=== PATIENT | female | born 1990 | race Caucasian/White ===

== ENCOUNTER → 2019-10-25 14:06 | Outpatient (BNVA) | payer MEDICAID, SELFPAY | PROVIDERS: Family Provider Pediatrics; PCP Pediatrics; Visit Provider Nurse Practitioner Family | DX: R39.9 Unspecified symptoms and signs involving the genitourinary system (principal); N39.0 Urinary tract infection, site not specified | CPT/HCPCS: 80053; 81000; 87077; 87086; 87186 ==

== ENCOUNTER → 2020-03-06 16:06 | Outpatient (BNVA) | payer MEDICAID, SELFPAY | PROVIDERS: Family Provider Pediatrics; PCP Pediatrics; Visit Provider Nurse Practitioner Family | DX: J01.40 Acute pansinusitis, unspecified (principal); M25.571 Pain in right ankle and joints of right foot; S99.919A Unspecified injury of unspecified ankle, initial encounter; S99.911A Unspecified injury of right ankle, initial encounter; X58.XXXA Exposure to other specified factors, initial encounter | CPT/HCPCS: 73610 ==

== ENCOUNTER 2022-02-21 06:26 | Emergency (ER) | payer BC, MEDICAID, SELFPAY ==
[2022-02-21] VITALS (7 sets, daily range): BP systolic 163–187; BP diastolic 113–123; PULSE 90; RESP 16; TEMP 36.7; O2SAT 92–100; BMI 22.1
--- NOTE | 2022-02-21 06:53 | XR_ITS ---
WS: [id number] Portable AP upright chest, 02/21/2022 Clinical Data: high blood pressure with dizziness Comparison: None. Findings: No nodules, masses or effusions are seen. The heart is normal. The pulmonary vascularity is not increased. No pneumonia or pneumothorax is seen. XR/XR chest 1V portable [id number] Impression: Negative chest.
--- NOTE | 2022-02-21 06:53 | CTR_ITS ---
PROCEDURE INFORMATION: Exam: CT Head Without Contrast Exam date and time: 02/21/2022 7:39 AM Age: 31 years old Clinical indication: Dizziness TECHNIQUE: Imaging protocol: Computed tomography of the head without contrast. Radiation optimization: All CT scans at this facility use at least one of these dose optimization techniques: automated exposure control; mA and/or kV adjustment per patient size (includes targeted exams where dose is matched to clinical indication); or iterative reconstruction. COMPARISON: No relevant prior studies available. RADIATION DOSE METRICS: Total DLP (mGy-cm): 966.78 FINDINGS: Brain: There is no acute intracranial hemorrhage. No extra-axial fluid collection. No evidence of acute infarct. [place]o white differentiation is intact. There is no evidence of mass. There is no mass effect or midline shift. Cerebral ventricles: No ventriculomegaly. Paranasal sinuses: Visualized sinuses are unremarkable. No fluid levels. Mastoid air cells: No significant mastoid effusion. Bones/joints: No acute fracture. Soft tissues: Unremarkable as visualized. CT/CT head wo con* [id number] IMPRESSION: No evidence of acute intracranial abnormality. No acute hemorrhage. No evidence of acute infarct or mass.
--- NOTE | 2022-02-21 06:55 | ECG_ITS ---
[facility] Test Date: 2022-02-21 Pat Name: Niurka Martines Department: Room: Gender: Female Devops Consultant: : 1990 Requested By: Ryne Camp Order Number: [id number] Bhavesh MD: Luz Portillo M.D. Measurements Intervals [place] Rate: 77 P: 67 MI: 128 QRS: 76 QRSD: 84 T: 59 QT: 385 QTc: 437 Interpretive Statements SINUS RHYTHM INTERPRETATION BASED ON A DEFAULT AGE OF 40 YEARS No previous ECG available for comparison Electronically Signed On 02-21-2022 17:11:14 CDT by Luz Portillo M.D. [id number]
--- NOTE | 2022-02-21 06:56 | W.ED.GENADLT ---
HPI - General Adult General: Chief complaint: General Medical Stated complaint: Dizzy Time Seen by Provider: 02/21/22 06:32 History of Present Illness: 31-year-old female presents emergency department chief complaint of dizziness intermittently has been ongoing for last several days. The patient reports no chest pain shortness of breath or palpitations associated with it she reported is intermittent unrelated activity or exertion. She reports history of high blood pressure following her previous 6 years ago however it reports he is on no blood pressure medications reports her diastolic is normally over 100. Patient reports she does not frequently see a physician. She reports she is on no current medications for her blood pressure. Patient reports having no current headache or focal weakness reporting no other associated symptoms. Associated symptoms: Deny chest pain, dyspnea, malaise, nausea, rash, palpitations or vomiting Review of Systems General: Reports: 10 or more systems reviewed and unremarkable except in HPI and below Const: Denies: fever(s), chills, fatigue or malaise Eyes: Denies: change in vision or blurry vision Card: Denies: chest pain or palpitations Resp: Denies: dyspnea or productive cough GI: Denies: abdominal pain, nausea or vomiting : Denies: flank pain Musc: Denies: extremity pain or extremity swelling Skin/Breast: Denies: rash or pruritus Neuro: Reports: dizziness and vertigo Psych: Denies: anxiety or depression James/Lymph: Denies: easy bleeding All/Imm: Denies: urticaria, throat swelling or facial swelling PFSH ED PFSH: Medical History Personal history of smoking Surgical History History of section time 3 History of tubal ligation Family History Other Cancer Diabetes Hypertension Social History Smoking and tobacco status: current every day smoker Second hand smoke exposure: Yes Smoking risk assessment/counseling performed?: Yes Alcohol intake: never Desire information about alcohol rehabilitation?: No Counseling given: No Desire information about substance/drug rehabilitation?: No Counseling given: No Adopted: No Caregiver/support person: No Lives independently: Yes Household members: spouse Housing: House Marital status: Number of children: 3 service: No Current occupational status: employed History of recent travel: No Current gender identity: Female Female Reproductive History: Date of last menstrual period: 10/31/19 Physical Exam Const: COMMON NORMALS: no acute distress, patient oriented x3 and healthy appearing OTHER: Patient appears nontoxic with no obvious focal neurodeficits appreciated HENMT: COMMON NORMALS: normocephalic and atraumatic HEAD & SCALP: normocephalic and atraumatic Eye: COMMON NORMALS: Equal, round and reactive pupils present and EOMs intact bilaterally PUPIL: Yes Equal, round and reactive pupils present Neck/C-Spine: COMMON NORMALS: full ROM, supple and no JVD Lymph: LYMPHATIC: no lymphadenopathy noted Chest: COMMONS NORMALS: normal inspection of the chest and normal palpation of entire chest wall Resp: COMMON NORMALS: normal respiratory effort, No retractions and clear to auscultation bilaterally EFFORT & INSPECTION: Yes able to speak in complete sentences and Yes symmetric chest movement AUSCULTATION: clear to auscultation bilaterally Cardio: COMMON NORMALS: no JVD, regular rate and regular rhythm RATE: regular rate RHYTHM: regular rhythm GI: COMMON NORMALS: Normal to inspection, nondistended, normoactive bowel sounds present, Soft to palpation and non-tender INSPECTION: Yes normal to inspection PALPATION: Yes Soft to palpation : COMMON NORMALS: Yes no CVA tenderness BLADDER/KIDNEY EXAM: Yes no CVA tenderness Back/Pelvis: COMMON NORMALS: no CVA tenderness Extremity: COMMON NORMALS: normal to inspection and full ROM Neuro: COMMON NORMALS: patient oriented x3, CN's II-XII intact bilaterally, moves all extremities and no focal motor deficits OTHER: GCS of 15 NIH is 0 Psych: COMMON NORMALS: mental status grossly normal, Normal thought process present, cooperative and normal affect THOUGHT PROCESS: Normal thought process present Skin: COMMON NORMALS: no rashes or lesions noted GENERAL SKIN EXAM: no rashes or lesions noted Course Vital Signs: Vital signs: Vital Signs Temperature 98.1 F 02/21/22 06:37 Pulse Rate 90 02/21/22 06:37 Respiratory Rate 16 02/21/22 06:37 Blood Pressure 184/123 02/21/22 07:55 Pulse Oximetry 92 02/21/22 07:50 MDM - General Adult Medical Decision Making Due to the patient's symptoms due to the patient's symptoms and condition underlying concerns of hypertensive urgency emergency or prominent we will be obtaining a appropriate cardiac work-up we will continue to follow the patient blood pressure which most likely will need to be responded readily with intravenous antihypertensives we will continue to follow. Patient was found be positive for amphetamine abuse with contributing to reason why she is so grossly hypertensive we will be starting the patient on additional medications for her associated symptoms. Patient was advised to further follow-up with primary care in 2 to 3 days which was advised to return the interim if any of her symptoms persist or worse. Lab Data : 02/21/22 07:00 02/21/22 07:00 Radiology Impressions Chest X-Ray 02/21/22 06:53 Impression: Negative chest. Head CT 02/21/22 06:53 IMPRESSION: No evidence of acute intracranial abnormality. No acute hemorrhage. No evidence of acute infarct or mass. Laboratory Results WBC 8.2 10^3/uL (4.0-10.0) 02/21/22 07:00 RBC 4.61 10^6/uL (4.1-5.3) 02/21/22 07:00 Hgb 13.2 g/dL (11.5-15.3) 02/21/22 07:00 Hct 40.8 % (37.0-47.0) 02/21/22 07:00 MCV 88.5 fl (81-99) 02/21/22 07:00 MCH 28.6 pg (28.0-34.0) 02/21/22 07:00 MCHC 32.4 g/dL (30.0-36.0) 02/21/22 07:00 RDW 13.6 % (12.1-15.1) 02/21/22 07:00 Plt Count 318 10^3/cmm (130-400) 02/21/22 07:00 MPV 9.3 fL (7.4-10.4) 02/21/22 07:00 Neut % (Auto) 62.9 % 02/21/22 07:00 Lymph % (Auto) 24.7 % 02/21/22 07:00 [place] % (Auto) 8.4 % 02/21/22 07:00 Eos % (Auto) 3.3 % 02/21/22 07:00 Baso % (Auto) 0.5 % 02/21/22 07:00 Neut # (Auto) 5.18 10^3/uL (1.8-7.7) 02/21/22 07:00 Lymph # (Auto) 2.0 10^3/uL (0.8-4.8) 02/21/22 07:00 [place] # (Auto) 0.7 10^3/uL (0.2-0.9) 02/21/22 07:00 Eos # (Auto) 0.3 10^3/uL (0.0-0.8) 02/21/22 07:00 Baso # (Auto) 0.0 10^3/uL (0.0-0.1) 02/21/22 07:00 Nucleated RBC % (auto) 0 % 02/21/22 07:00 Nucleated RBCs # 0.0 /100WBC 02/21/22 07:00 Sodium 136 mmol/L (136-145) 02/21/22 07:00 Potassium 3.7 mmol/L (3.5-5.1) 02/21/22 07:00 Chloride 102 mmol/L (98-107) 02/21/22 07:00 Carbon Dioxide 23 mmol/L (22-29) 02/21/22 07:00 Anion Gap 14.7 (5-19) 02/21/22 07:00 BUN 11 mg/dL (6-20) 02/21/22 07:00 Creatinine 0.7 mg/dL (0.5-0.9) 02/21/22 07:00 GFR Calculation 96.4 mL/min (90-130) 02/21/22 07:00 Glucose 87 mg/dL (65-115) 02/21/22 07:00 Calculated Osmolality 281 mOsm/kg (285-295) L 02/21/22 07:00 Calcium 8.9 mg/dL (8.5-10.5) 02/21/22 07:00 Total Bilirubin 0.3 mg/dL (0.15-1.2) 02/21/22 07:00 AST 13 U/L (0-32) 02/21/22 07:00 ALT 11 U/L (0-33) 02/21/22 07:00 Alkaline Phosphatase 79 IU/L (35-105) 02/21/22 07:00 Troponin T Baseline 6 ng/L (0-10) 02/21/22 07:00 Troponin T 120 Minute 6.00 ng/L (0-10) 02/21/22 09:05 Delta Troponin T 0 ABS# (0-10) 02/21/22 09:05 C-Reactive Protein 3.0 mg/L (0.0-4.9) 02/21/22 07:00 NT-Pro-B Natriuret Pep 70 pg/mL (0-125) 02/21/22 07:00 Total Protein 7.6 g/dL (6.6-8.7) 02/21/22 07:00 Albumin 4.8 g/dL (3.5-5.2) 02/21/22 07:00 Globulin 2.8 g/dL (1.3-4.6) 02/21/22 07:00 Lipase 21 U/L (13-60) 02/21/22 07:00 Urine Color Yellow (Yellow) 02/21/22 07:50 Urine Appearance Clear (CLEAR) 02/21/22 07:50 Urine pH 6.5 (5-7) 02/21/22 07:50 Ur Specific [place] 1.015 (1.005-1.030) 02/21/22 07:50 Urine Protein Neg (Negative) 02/21/22 07:50 Urine Glucose (UA) Norm (Normal) 02/21/22 07:50 Urine Ketones Negative (Negative) 02/21/22 07:50 Urine Blood 2+ (Negative) H 02/21/22 07:50 Urine Nitrate Positive (Negative) H 02/21/22 07:50 Urine Bilirubin Neg (Negative) 02/21/22 07:50 Urine Urobilinogen Norm mg/dL (Negative) 02/21/22 07:50 Ur Leukocyte Esterase Negative (Negative) 02/21/22 07:50 Urine RBC 0-4 /hpf (0-2) H 02/21/22 07:50 Urine WBC Rare /hpf (0-5) 02/21/22 07:50 Ur Squamous Epith Cells Rare /hpf (0-5) 02/21/22 07:50 Amorphous Sediment Not Reportable 02/21/22 07:50 Urine Bacteria 2+ /hpf (NONE) H 02/21/22 07:50 Urine Opiates Screen Negative ng/mL (Negative) 02/21/22 07:50 Ur Barbiturates Screen Negative ng/mL (Negative) 02/21/22 07:50 Ur Phencyclidine Scrn Negative ng/mL (Negative) 02/21/22 07:50 Ur Amphetamines Screen Positive ng/mL (Negative) H 02/21/22 07:50 U Benzodiazepines Scrn Negative ng/mL (Negative) 02/21/22 07:50 Urine Cocaine Screen Negative ng/mL (Negative) 02/21/22 07:50 U Marijuana (THC) Screen Positive ng/mL (Negative) H 02/21/22 07:50 EKG Data Normal sinus rhythm rate of [address] segment elevations or depressions appreciated.: Computer generated interpretation: Chest X-Ray 02/21/22 06:53 Impression: Negative chest. Head CT 02/21/22 06:53 IMPRESSION: No evidence of acute intracranial abnormality. No acute hemorrhage. No evidence of acute infarct or mass. Discharge Plan Discharge Patient Disposition: Home Clinical Impression: Malignant hypertension, Polysubstance (excluding opioids) dependence, daily use, Amphetamine adverse reaction Condition: Stable Prescriptions: New olmesartan-hydrochlorothiazide [Benicar HCT] 20-12.5 mg tablet 1 tab PO DAILY Qty: 30 0RF clonidine HCl 0.1 mg tablet 0.1 mg PO Q6H PRN (Reason: hypertensive emergency) 2 Days Qty: 14 0RF No Action Hair,Skin and Nails Tablet 1 tab PO BID 0RF Discharge Orders: Discharge ED (Routine); Ordered 02/21/22 Ordered By: Ryne Camp Referrals: Silvino Mcclelland MD [Primary Care Provider] - 1-3 days Discharge Diet: Cardiac Discharge Activity: Increase activity as tolerated Patient Instructions: Methamphetamine Abuse, Chronic Hypertension (ED), Methamphetamine Use Disorder (ED), Hypertensive Crisis (ED), Opioid Safety Activity Restrictions/Additional Instructions: Please follow-up with your primary care doctor in 2 to 3 days take medications preserved as prescribed on urine drug screen came back Positive for amphetamines. If you are having issues with drug abuse please seek out additional guidance in regards to help in this matter. Coding Level of Care Code ED Slipper Maker for [place] Fwd Exam Comprehensive
--- NOTE | 2022-02-21 07:12 | PC.NURSE ---
RECIEVED REPORT FROM VERONIQUE JASSO ASSUMED CARE WHILE AT BEDSIDE. PT IS IN NAD. PT DENIES ANY FURTHER NEEDS AT THIS TIME.
[2022-02-21 07:18] LABS: Basophils % 0.5 %; Eosinophils # 0.3 10^3/uL (0.0-0.8); Eosinophils % 3.3 %; Hematocrit 40.8 % (37.0-47.0); Hemoglobin 13.2 g/dL (11.5-15.3); Lymphocytes % 24.7 %; Mean Corpuscular HGB Conc 32.4 g/dL (30.0-36.0); Mean Corpuscular Hemoglobin 28.6 pg (28.0-34.0); Mean Corpuscular Volume 88.5 fl (81-99); Mean Platelet Volume 9.3 fL (7.4-10.4); Monocytes # 0.7 10^3/uL (0.2-0.9); Monocytes % 8.4 %; Neutrophils # 5.18 10^3/uL (1.8-7.7); Neutrophils % 62.9 %; Nucleated Red Blood Cells % 0 %; Platelet Count 318 10^3/cmm (130-400); Red Blood Count 4.61 10^6/uL (4.1-5.3); Red Cell Distribution Width 13.6 % (12.1-15.1); White Blood Count 8.2 10^3/uL (4.0-10.0)
--- NOTE | 2022-02-21 07:21 | PC.NURSE ---
PRIOR TO EKG VERBAL CONSENT OBTAINED, PPE DAWNED, AND WITNESSED BY MONE SAEED RN.
[2022-02-21 07:38] LABS: Troponin(5th) Baseline 6 ng/L (0-10)
[2022-02-21 07:48] LABS: Alanine Aminotransferase 11 U/L (0-33); Albumin Level 4.8 g/dL (3.5-5.2); Alkaline Phosphatase 79 IU/L (35-105); Anion Gap 14.7 (5-19); Aspartate Amino Transferase 13 U/L (0-32); Blood Urea Nitrogen 11 mg/dL (6-20); Calcium 8.9 mg/dL (8.5-10.5); Carbon Dioxide 23 mmol/L (22-29); Chloride 102 mmol/L (98-107); Globulin 2.8 g/dL (1.3-4.6); Glomerular Filtration Rate 96.4 mL/min (90-130); Glucose 87 mg/dL (65-115); Lipase 21 U/L (13-60); NT Pro B Type Natriuretic Pept 70 pg/mL (0-125); Osmolality Calculated 281 mOsm/kg (285-295); Potassium 3.7 mmol/L (3.5-5.1); Sodium 136 mmol/L (136-145); Total Bilirubin 0.3 mg/dL (0.15-1.2); Total Protein 7.6 g/dL (6.6-8.7)
[2022-02-21] MEDS: ondansetron 2 mg/ML SDV 2 mL 4 MG IVP (07:52)
[2022-02-21 08:14] LABS: Add Urine Culture? Yes; Add Urine Microscopic? YES; Bacteria Urine 2+ /hpf; Bilirubin Urine Neg (Negative); Blood Urine 2+ (Negative); Glucose Urine UA Norm (Normal); Ketones Urine Negative (Negative); Leukocyte Esterase Urine Negative (Negative); Nitrate Urine Positive (Negative); Protein Urine Neg (Negative); RBC Urine 0-4 /hpf (0-2); Specific Gravity, Urine 1.015 (1.005-1.030); Squamous Epithelial Cell Urine RARE /hpf (0-5); Urine Appearance Clear (CLEAR); Urine Color Yellow (Yellow); Urobilinogen Urine Norm (Negative); WBC Urine RARE /hpf (0-5); pH Urine 6.5 (5-7)
[2022-02-21 08:16] LABS: Amphetamines Screen Urine Positive (Negative); Barbiturates Screen Urine Negative (Negative); Benzodiazepines Screen Urine Negative (Negative); Cocaine Screen Urine Negative (Negative); Opiate Screen Urine Negative (Negative); PCP Screen Urine Negative (Negative); THC Screen Urine Positive (Negative)
[2022-02-21 09:42] LABS: Troponin 5 2HR Delta 0 ABS# (0-10)
[2022-02-21] MEDS: cloNIDine 0.1 mg Tablet 0.2 MG PO (10:46)
== END 2022-02-21 11:10 | disposition home or self-care (01) ==
PROVIDERS: Emergency Provider Emergency Medicine; PCP Pediatrics
DX: I10 Essential (primary) hypertension (principal); F19.20 Other psychoactive substance dependence, uncomplicated; T43.625A Adverse effect of amphetamines, initial encounter; F17.210 Nicotine dependence, cigarettes, uncomplicated
CPT/HCPCS: 36415; 70450; 71045; 80053; 80306; 81001; 83690; 83880; 84484; 85025; 86140; 87077; 87086; 87186; 93005; 96374; 99285; J2405

== ENCOUNTER 2022-12-19 16:40 | Emergency (ER) | payer BC, MEDICAID, SELFPAY ==
[2022-12-19 16:48] VITALS: BP 199/146; PULSE 94; RESP 15; TEMP 36.8; O2SAT 99; BMI 21.9
[2022-12-19 17:37] VITALS: BP 184/138; PULSE 85; O2SAT 100
--- NOTE | 2022-12-19 17:41 | W.ED.DENTAL ---
HPI - Dental/Oral General: Chief complaint: Dental/Oral Stated complaint: tooth abscess Time Seen by Provider: 12/19/22 17:05 Source: patient Mode of arrival: ambulatory History of Present Illness: 32-year-old male who was seen yesterday with right-sided facial pain and swelling of the maxilla has a tooth abscess was started on clindamycin has been applying heat pads and has increasing swelling. She is also been taking some ibuprofen pain is gotten worse. No fever sweats chills no difficulty with breathing. Onset (ago): day(s) Duration: constant Severity: mild Exacerbating factors: chewing and heat Context: history of dental caries Associated symptoms: Reports gum swelling; Denies ear or mastoid pain, fever(s), odynophagia, sore throat, tongue swelling or other Review of Systems Const: Denies: fever(s) or chills ENMT: Denies: odynophagia or ear or mastoid pain Card: Denies: chest pain, edema, dyspnea on exertion or orthopnea Resp: Denies: dyspnea, productive cough or non-productive cough GI: Denies: abdominal pain, nausea or vomiting : Denies: dysuria, urinary frequency or urinary urgency All/Imm: Denies: tongue swelling PFSH ED PFSH: Medical History Personal history of smoking Surgical History History of section time 3 History of tubal ligation Family History Other Cancer Diabetes Hypertension Social History Smoking and tobacco status: current every day smoker Second hand smoke exposure: Yes Smoking risk assessment/counseling performed?: Yes Alcohol intake: never Desire information about alcohol rehabilitation?: No Counseling given: No Substance/Drug Use: never Desire information about substance/drug rehabilitation?: No Counseling given: No Adopted: No Caregiver/support person: No Lives independently: Yes Household members: spouse Housing: House Marital status: Number of children: 3 service: No Current occupational status: employed Do you think of yourself as: Straight/Heterosexual Current gender identity: Female Physical Exam Const: GENERAL APPEARANCE: cooperative and comfortable ORIENTATION/CONSCIOUSNESS: Yes awake, Yes oriented to person, Yes oriented to place and Yes oriented to time HENMT: COMMON NORMALS: normocephalic, atraumatic and hearing grossly normal bilaterally HEAD & SCALP: normocephalic and atraumatic OTHER: Left facial swelling in the anterior maxilla. There is no evidence of palpable abscess noted on oral exam poor dentition. Erosion of some teeth. No fullness or swelling in the submandibular area. There is some gum swelling around the third fourth and fifth teeth. There is no evidence of palpable fluctuant abscess. Resp: COMMON NORMALS: normal respiratory effort, No retractions, No use of accessory muscles and clear to auscultation bilaterally AUSCULTATION: clear to auscultation bilaterally Cardio: COMMON NORMALS: regular rate, regular rhythm and No murmurs present (Cardio) RATE: regular rate RHYTHM: regular rhythm Extremity: COMMON NORMALS: normal to inspection, capillary refill normal, no clubbing, cyanosis or edema, no calf tenderness and no pedal edema Neuro: SENSORIUM/ORIENTATION: Yes oriented to person, Yes oriented to place and Yes oriented to time Skin: COMMON NORMALS: no rashes or lesions noted GENERAL SKIN EXAM: no rashes or lesions noted Course Vital Signs: Vital signs: Vital Signs Temperature 98.3 F 12/19/22 16:48 Pulse Rate 85 12/19/22 18:24 Respiratory Rate 15 12/19/22 16:48 Blood Pressure 184/138 12/19/22 18:24 Pulse Oximetry 100 12/19/22 18:24 Oxygen Delivery Me thod Room Air 12/19/22 16:48 MDM - Dental/Oral Medical Decision Making No drainable abscess. Suspect her symptoms are worsened by heat recommend applying cold continue antibiotics use analgesics as needed follow-up with dentist as soon as she is able for definitive care Medical Records I reviewed the patient's medical records. Lab Data I reviewed the patient's lab results. Discharge Plan Discharge Patient Disposition: Home Clinical Impression: Dental abscess Condition: Stable Prescriptions: New hydrocodone-acetaminophen 5-325 mg tablet 1 tab PO Q6H PRN (Reason: pain) Qty: 10 0RF No Action clindamycin HCl 150 mg capsule 450 mg PO TID 7 Days Qty: 63 0RF Discharge Orders: Discharge ED (Routine); Ordered 12/19/22 Ordered By: Rafael Haley Referrals: Silvino Mcclelland MD [Primary Care Provider] - Patient Instructions: Dental Abscess (ED), Opioid Safety, Pain Management Activity Restrictions/Additional Instructions: You are seen today for dental abscess continue the antibiotics use pain medications given apply cold packs as needed. Strongly recommend seeing a dentist as soon as you are able for definitive care Coding Level of Care Code ED Fine Jewelry Sales Associate for [place] Cobian
[2022-12-19 18:24] VITALS: BP 184/138; PULSE 85; O2SAT 100
--- NOTE | 2022-12-19 18:25 | PC.NURSE ---
Patient pulled out own IV, left AMA.
== END 2022-12-19 18:25 | disposition home or self-care (01) ==
PROVIDERS: Emergency Provider Family Medicine; PCP Pediatrics
DX: K04.7 Periapical abscess without sinus (principal); F17.210 Nicotine dependence, cigarettes, uncomplicated
CPT/HCPCS: 99283

== ENCOUNTER 2023-12-08 09:46 | Emergency (ER) | payer BC, MEDICAID, SELFPAY ==
[2023-12-08 09:51] VITALS: BP 201/152; PULSE 76; RESP 18; TEMP 36.8; O2SAT 100; BMI 20.7
--- NOTE | 2023-12-08 10:07 | XR_ITS ---
WS: [id number] XR forearm RT 2V [id number] REASON FOR EXAM: pain/deformity FINDINGS: Nondisplaced transverse fracture of the distal ulnar diaphysis. Slight posterior angulation at the fr acture site. Proximal radius and ulna are intact without abnormality. No abnormality of the distal radius noted. XR/XR forearm RT 2V [id number] IMPRESSION: Right forearm fracture as above.
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
[2023-12-08 10:43] LABS: Basophils % 0.4 %; Eosinophils # 0.3 10^3/uL (0.0-0.8); Hematocrit 47.9 % (36-47); Lymphocytes # 2.5 10^3/uL (0.8-4.8); Lymphocytes % 25.6 %; Mean Corpuscular HGB Conc 31.1 g/dL (30-55); Mean Corpuscular Hemoglobin 28.1 pg (27-33); Mean Corpuscular Volume 90.4 fl (85-98); Mean Platelet Volume 9.3 fL (7.4-10.4); Monocytes # 0.7 10^3/uL (0.2-0.9); Monocytes % 7.6 %; Neutrophils # 6.04 10^3/uL (1.8-7.7); Neutrophils % 63.1 %; Nucleated Red Blood Cells % 0 %; Platelet Count 308 10^3/cmm (157-399); Red Cell Distribution Width 14.8 % (12.1-15.1); White Blood Count 9.58 10^3/uL (3.29-11.43)
[2023-12-08 11:00] LABS: Alanine Aminotransferase 14 U/L (0-33); Albumin Level 4.5 g/dL (3.5-5.2); Alkaline Phosphatase 83 U/L (35-105); Aspartate Amino Transferase 22 U/L (0-32); Blood Urea Nitrogen 11 mg/dL (6-20); Calcium 8.8 mg/dL (8.5-10.5); Carbon Dioxide 18 mmol/L (22-29); Chloride 104 mmol/L (98-107); Creatinine Clr Calc Pharmacy 100.9039; Globulin 3.7 g/dL (1.3-4.6); Glomerular Filtration Rate 81.6 mL/min (90-130); Glucose 79 mg/dL (65-115); Osmolality Calculated 282 mOsm/kg (285-295); Sodium 137 mmol/L (136-145); Total Bilirubin 0.4 mg/dL (0.15-1.2); Total Protein 8.2 g/dL (6.6-8.7)
[2023-12-08] MEDS: hyDRALAzine 20 mg/mL INJ 1 mL 10 MG IVP (11:05)
[2023-12-08 11:06] LABS: Anion Gap 19.1 (5-19); Potassium 4.1 mmol/L (3.5-5.1)
--- NOTE | 2023-12-09 07:27 | DCPLANNER ---
message sent to ortho for er ref
== END 2023-12-08 11:38 | disposition home or self-care (01) ==
PROVIDERS: Emergency Provider Family Medicine
DX: S52.224A Nondisplaced transverse fracture of shaft of right ulna, initial encounter for closed fracture (principal); I10 Essential (primary) hypertension; Z72.0 Tobacco use; X58.XXXA Exposure to other specified factors, initial encounter
CPT/HCPCS: 36415; 73090; 80053; 85025; 96374; 99284; J0360

== ENCOUNTER → 2023-12-15 16:22 | Outpatient (BNVA) | payer BC, MEDICAID, SELFPAY | PROVIDERS: Referring Provider Family Medicine; Visit Provider Orthopaedic Surgery | DX: T14.8XXA Other injury of unspecified body region, initial encounter; X58.XXXA Exposure to other specified factors, initial encounter | CPT/HCPCS: 73090 ==

== ENCOUNTER 2024-02-24 16:58 | Emergency (ER) | payer BC, MEDICAID, SELFPAY ==
[2024-02-24 17:00] VITALS: BP 206/136; PULSE 91; RESP 18; TEMP 36.7; O2SAT 100
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
[2024-02-24] MEDS: tetanus-dipt-pertussis 0.5 mL SDV IM (18:20)
[2024-02-24 18:21] VITALS: PULSE 75; O2SAT 100
[2024-02-24 18:30] VITALS: BP 177/118
[2024-02-24 18:46] VITALS: PULSE 72; O2SAT 100
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
== END 2024-02-24 19:59 | disposition home or self-care (01) ==
PROVIDERS: Emergency Provider Family Medicine
DX: S52.601A Unspecified fracture of lower end of right ulna, initial encounter for closed fracture (principal); S00.81XA Abrasion of other part of head, initial encounter; H93.8X2 Other specified disorders of left ear; Z72.0 Tobacco use; Y04.2XXA Assault by strike against or bumped into by another person, initial encounter; Y07.030 Male partner, current, perpetrator of maltreatment and neglect; Z23 Encounter for immunization
CPT/HCPCS: 29105; 70450; 72040; 73090; 90715; 99284; 99291